=== PATIENT | female | born 1975 | race Hispanic/Latino ===

== ENCOUNTER 2020-10-08 17:17 | Emergency (ER) | payer SELFPAY ==
[2020-10-08 18:55] LABS: #Basophils 0.1 thou/uL (0.0-0.2); #Eosinphils 0.3 thou/uL (0.0-0.7); #Lymphocytes 3.8 thou/uL (1.20-3.40); #Monocytes 0.6 thou/uL (0.11-0.59); #Neutrophils 4.9 thou/uL (1.40-6.50); %Eosinophils 2.7 % (0.0-10.0); %Lymphocytes 38.9 % (21.0-51.0); %Monocytes 6.6 % (0.0-10.0); %Neutrophils 50.8 % (42.0-75.0); Hemoglobin 16.1 g/dL (12.0-16.0); Mean Corpuscular HGB CONC 34.1 g/dL (32.0-36.0); Mean Corpuscular Hemoglobin 31.8 pg (27.0-31.0); Mean Corpuscular Volume 93.2 fL (78.0-98.0); Mean Platelet Volume 6.7 fL (7.4-10.4); Platelet Count 227 thou/uL (130-400); RBC Distribution Width 11.9 % (11.5-14.5); Red Blood Cell (RBC) Count 5.07 mill/uL (4.20-5.40); White Blood Cell (WBC) Count 9.7 thou/uL (4.8-10.8)
[2020-10-08 19:18] LABS: ALT (SGPT) 11 U/L (8-55); AST (SGOT) 16 U/L (5-34); Albumin 4.6 g/dL (3.5-5.0); Alkaline Phosphatase 92 U/L (40-110); Anion Gap 16 mmol/L (10-20); BUN (Urea Nitrogen) 9 mg/dL (7.0-18.7); Bilirubin, Total 0.7 mg/dL (0.2-1.2); Calc. Creatinine Clearance 0 mL/min (70-130); Calcium 9.9 mg/dL (7.8-10.44); Carbon Dioxide 26 mmol/L (22-29); Chloride 102 mmol/L (98-107); Estimated GFR-MDRD 81; Globulin 3.4 g/dL (2.4-3.5); Glucose 81 mg/dL (70-105); Lipase 13 U/L (8-78); Magnesium 1.9 mg/dL (1.6-2.6); Potassium 3.4 mmol/L (3.5-5.1); Sodium 141 mmol/L (136-145)
[2020-10-08 21:15] LABS: Bacteria/HPF 4+ HPF (None Seen); Bilirubin Negative (Negative); Blood, Urine 2+ (Negative); Clarity Turbid (Clear); Glucose, Urine (Dipstick) Normal (Negative); Ketone, Urine Trace mg/dL (Negative); Leukocyte 250 Leu/uL (Negative); Nitrite 2+ (Negative); Pregnancy Test - Urine (BHCG) Negative (Negative); Pregu Control Background? CLEAR/WHITE (CLR/WHITE); Pregu Control Bar Appear? YES (CONTROL BAR); Protein, Urine (Dipstick) 30 mg/dL (Neg-Trace); RBC/HPF Greater than 50 HPF (0-3); Renal Epithelial 0-3 HPF (None Seen); Specific Gravity 1.018 (1.002-1.036); Specific Gravity, Urine 1.018 (1.002-1.036); Urobilinogen Normal mg/dL (Less than 2); WBC/HPF Greater than 50 HPF (0-3)
[2020-10-08 21:20] LABS: Amphetamine Not Detected (NotDetected); Barbiturates Screen Not Detected (NotDetected); Benzodiazepine Screen Not Detected (NotDetected); Cocaine Metabolite Screen Not Detected (NotDetected); Medtox Control Line Valid? VALID (VALID); Medtox Reader # READER 1; Methadone Not Detected (NotDetected); Methamphetamine Not Detected (NotDetected); Opiate Screen Not Detected (NotDetected); Oxycodone Screen Not Detected (NotDetected); Phencyclidine (PCP) Not Detected (NotDetected); THC/Cannabinoid Screen Not Detected (NotDetected); Tricyclic Screen Not Detected (NotDetected)
[2020-10-08] MEDS ORDERED: Lidocaine 1% PF 5 ML VIAL ONE (22:14)
[2020-10-08] MEDS ORDERED: cefTRIAXone\\ROCEPHIN 1 GM VIAL ONE (22:14)
== END 2020-10-08 22:15 | disposition home or self-care (01) ==
LOC: ERS 17:17
DX: N39.0 Urinary tract infection, site not specified (principal); K62.5 Hemorrhage of anus and rectum
CPT/HCPCS: 36415; 80053; 80306; 81003; 81015; 81025; 83690; 83735; 85025; 86850; 86900; 86901; 87077; 87086; 87186; 94760; 96372; J0696

== ENCOUNTER 2020-10-14 18:58 | Observation (INO) | payer SELFPAY ==
[~2020-10-14 18:58] MED LIST: Iopamidol-370 76% 500 ML 1 ML ONE
[2020-10-14 19:28] LABS: Bilirubin Negative (Negative); Blood, Urine Large (Negative); Glucose, Urine (Dipstick) Negative (Negative); Ketone, Urine Negative (Negative); Leukocyte Trace (Negative); Nitrite Negative (Negative); Protein, Urine (Dipstick) 30 mg/dL (Neg-Trace); Specific Gravity, Urine 1.025 (1.005-1.030); Urobilinogen 0.2 mg/dL (Less than 2); pH, Urine 6.5 (5.0-9.0)
[2020-10-14 19:35] LABS: Clarity Clear (Clear)
[2020-10-14 19:36] LABS: Pregnancy Test - Urine (BHCG) Negative (Negative); Pregu Control Background? CLEAR/WHITE (CLR/WHITE); Pregu Control Bar Appear? YES (CONTROL BAR); Specific Gravity 1.025 (1.002-1.036)
[2020-10-14 19:38] LABS: Bacteria/HPF Rare-Few HPF (None Seen); Squamous Epithelial 0-3 HPF (0-3)
[2020-10-14] MEDS ORDERED: Ketorolac Tromethamine 30 MG/ML VIAL ONE (20:40)
[2020-10-14 20:54] LABS: #Basophils 0.1 thou/uL (0.0-0.2); #Eosinphils 0.1 thou/uL (0.0-0.7); #Lymphocytes 1.8 thou/uL (1.20-3.40); #Monocytes 0.7 thou/uL (0.11-0.59); #Neutrophils 9.3 thou/uL (1.40-6.50); %Basophils 0.8 % (0.0-1.0); %Eosinophils 0.8 % (0.0-10.0); %Monocytes 6.1 % (0.0-10.0); %Neutrophils 77.3 % (42.0-75.0); Hemoglobin 15.6 g/dL (12.0-16.0); Mean Corpuscular HGB CONC 34.2 g/dL (32.0-36.0); Mean Corpuscular Hemoglobin 32.5 pg (27.0-31.0); Mean Corpuscular Volume 95.1 fL (78.0-98.0); Mean Platelet Volume 6.7 fL (7.4-10.4); Platelet Count 217 thou/uL (130-400); Red Blood Cell (RBC) Count 4.78 mill/uL (4.20-5.40); White Blood Cell (WBC) Count 12.1 thou/uL (4.8-10.8)
[2020-10-14 21:14] LABS: ALT (SGPT) 12 U/L (8-55); AST (SGOT) 14 U/L (5-34); Albumin 4.1 g/dL (3.5-5.0); Alkaline Phosphatase 77 U/L (40-110); Anion Gap 14 mmol/L (10-20); BUN (Urea Nitrogen) 12 mg/dL (7.0-18.7); Bilirubin, Total 0.3 mg/dL (0.2-1.2); Calc. Creatinine Clearance 0 mL/min (70-130); Calcium 9.9 mg/dL (7.8-10.44); Carbon Dioxide 27 mmol/L (22-29); Chloride 104 mmol/L (98-107); Globulin 3.2 g/dL (2.4-3.5); Glucose 104 mg/dL (70-105); Lipase 16 U/L (8-78); Potassium 4.3 mmol/L (3.5-5.1); Protein, Total 7.3 g/dL (6.0-8.3); Sodium 141 mmol/L (136-145)
--- NOTE | 2020-10-14 21:31 | CT ---
EXAM: CT ABDOMEN AND PELVIS HISTORY: Left flank pain. Vomiting. Abdominal pain. COMPARISON: None. Procedure: Multiple contiguous axial images were obtained and a CT of the abdomen and pelvis with IV contrast. C oronal reformats were performed. FINDINGS: Lower Chest: Scarring and atelectasis in the lung base Vessels: Normal caliber aorta. No periaortic fat stranding Heart: Normal heart size. No significant pericardial fluid Abdomen: Portal vein:Patent Gallbladder: Surgically absent Liver: within normal limits. Pancreas: within normal limits. Spleen: within normal limits. Adrenals: within normal limits. Kidneys: Bilateral nonobstructing intrarenal calculi. There is symmetric enhancement kidneys. Hypoden sity in the mid right renal cortex measures 1.4 cm, compatible with a slightly complex cyst. No evidence of right-sided obstructive uropathy. Mild to moderate dilatation of the left intrarenal lissette ecting system and left renal pelvis secondary to a 0.5 cm calculus in the left ureteropelvic junction. Additional calculi are not appreciated in the left ureter. Peritoneum: No ascites or free air, no fluid collection. Bowel: Limited evaluation due to the lack of oral contrast administration. No evidence of bowel obstr uction. Ileocecal junction is unremarkable. Normal caliber appendix. Scattered fecal material in a nondistended, nondilated colon. Mesentery and Retroperitoneum: No enlarged mesenteric or retroperitoneal lymph nodes. Abdominal Wall: within normal limits. Pelvis: Reproductive Organs: Reproductive organs are unremarkable. Pelvis: No mass, lymphadenopathy, free air or free fluid. Bladder: within normal limits. Bones: No lytic or blastic lesions in the osseous structures. IMPRESSION: Mild to moderate left-sided obstructive uropathy secondary to a nodular calculus in the left ureterop elvic junction.
[2020-10-14] MEDS ORDERED: cefTRIAXone\\ROCEPHIN 1 GM VIAL ONE (22:51)
--- NOTE | 2020-10-15 00:24 | HP ---
CHIEF COMPLAINT: Left-sided abdominal pain. HISTORY OF PRESENT ILLNESS: Ms. Degroot is a 45-year-old female, who presented to the emergency room on 10/08/2020 with left-sided abdominal pain and rectal bleeding. Both these symptoms, she says she has had it off and on for several years. She does have a prior history of stones and states she had a procedure in the past for stones many years ago. She was discharged from the emergency room on 10/08/2020 with a prescription for Cipro for presumed urinary tract infection. She never took this medication as she could not afford it. She returned to the emergency room on 10/14/2020, with persistent left-sided abdominal pain. She denies any fevers, chills, or dysuria. As mentioned above, she did not take her antibiotics. Her urine culture from 10/08/2020 did grow E coli. PAST MEDICAL HISTORY: No chronic medical problems. PAST SURGICAL HISTORY: Procedure for stones many years ago. ALLERGIES: NO KNOWN DRUG ALLERGIES. SOCIAL HISTORY: She is homeless. Denies excessive alcohol use or drugs. REVIEW OF SYSTEMS: RESPIRATORY: Denies any shortness of breath. CARDIOVASCULAR: Denies chest pain or palpitations. GASTROINTESTINAL: Some rectal bleeding intermittently for years. Denies chronic constipation or diarrhea. GENITOURINARY: Denies dysuria. NEUROLOGIC: Denies any dizziness or stroke-like symptoms. PHYSICAL EXAMINATION: GENERAL: She is awake and alert. She is in no distress at this time. VITAL SIGNS: Temperature 98.4, blood pressure 138/82, pulse 82, and respiratory rate 16. HEENT: Normocephalic and atraumatic. NECK: Supple without masses. CHEST: Clear to auscultation. CARDIOVASCULAR: Regular rate and rhythm. ABDOMEN: Soft, nontender. No palpable masses. No peritoneal signs. EXTREMITIES: No edema. LABORATORY DATA: Urine culture on 10/08, positive for E coli sensitive to Rocephin, Levaquin, Cipro. Creatinine normal. White blood cell count 12.6. CT scan demonstrates a 5 mm left upper ureter stone. IMPRESSION: Ms. Degroot is a 45-year-old female with left ureter stone causing flank pain. She also has a positive urine culture, but has no signs or symptoms of urinary tract infection. She has had a positive culture for one week, but has not developed any fever, chills, or dysuria. Because of her social status, I do not feel it is safe to let her be discharged home as followup is not likely and she could potentially become septic over time without treatment. Outpatient compliance with medications is also not likely. I have recommended admission for IV antibiotics. She will need an endoscopic treatment for the stone with stent placement, ureteroscopy, and laser lithotripsy. PLAN: 1. IV antibiotics. 2. Cystoscopy, left ureteroscopy, laser lithotripsy, stone extraction, stent placement. Job ID: [id number]
[2020-10-15] MEDS ORDERED: Morphine 4 MG/ML VIAL SLOW IVP PRN ×3 (01:26→17:21)
[2020-10-15] MEDS ORDERED: Ketorolac Tromethamine 30 MG/ML VIAL IVP PRN (01:30)
[2020-10-15] MEDS ORDERED: Lactated Ringer's 1,000 ML IV SCH (01:30)
[2020-10-15 01:45] VITALS: BMI 20.2
[2020-10-15 05:08] LABS: SARS-CoV-2 N Gene Positive; SARS-CoV-2 S Gene Positive; SARS-CoV-2 by NAA DETECTED (NotDetected); SARS-CoV-2 orf1ab Positive
[2020-10-15 05:09] LABS: SARS-CoV-2 MS2 Positive
[2020-10-15] MEDS ORDERED: FLU VACC QS2020-21(6MOS UP)/PF 60 MCG/0.5 ML SYRINGE IM ONE (09:00)
[2020-10-15] MEDS ORDERED: Succinylcholine 200 MG/10 ml SYRINGE FS ONE ×2 (10:25→15:46)
[2020-10-15] MEDS ORDERED: PROPOFOL 200 MG/20 ML VIAL ONE ×2 (10:25→15:46)
[2020-10-15] MEDS ORDERED: Lidocaine 1% PF 5 ML VIAL ONE ×2 (10:25→15:46)
[2020-10-15] MEDS ORDERED: ePHEDrine 50 MG/ML VIAL ONE ×2 (10:25→15:46)
[2020-10-15] MEDS ORDERED: Ondansetron ODT 4 MG TAB PO PRN (16:42)
[2020-10-15] MEDS: Lactated Ringer's 1,000 ML IV SCH (17:29)
[2020-10-15] MEDS ORDERED: Iothalamate Meglumine 60% 50 ML VIAL FS ONE (19:03)
[2020-10-15] MEDS ORDERED: Midazolam HCl 2 mg/2 ml Vial ONE (19:31)
[2020-10-15] MEDS ORDERED: Fentanyl 100 MCG/2 ML VIAL ONE ×2 (19:31→21:05)
[2020-10-15] MEDS ORDERED: cefTRIAXone\\ROCEPHIN 1 GM VIAL ONE (19:56)
[2020-10-15] MEDS ORDERED: Famotidine 20 MG TAB PO SCH (21:00)
[2020-10-15] MEDS ORDERED: Ondansetron PF 4 MG/2 ML Vial ONE (21:26)
[2020-10-16] MEDS: Lactated Ringer's 1,000 ML IV SCH (00:01)
[2020-10-16 00:03] VITALS: BP 143/67; TEMP 97.3
--- NOTE | 2020-10-16 03:15 | OP ---
DATE OF PROCEDURE: 10/15/2020 PREOPERATIVE DIAGNOSIS: Left ureteral stone. POSTOPERATIVE DIAGNOSIS: Left renal stone. PROCEDURE: Cystoscopy, left ureteroscopy, stone extraction, stent placement. ANESTHESIA: General. INDICATIONS: Ms. Degroot is a 45-year-old female with a positive urine culture and a left upper ureteral stone with hydronephrosis. She was admitted to the hospital and given IV antibiotics. She was not febrile. She is homeless. She is being brought to the operating room for definitive stone therapy. DESCRIPTION OF PROCEDURE: The patient given general anesthesia and IV antibiotics. She is sterilely prepped and draped in a lithotomy position. A guidewire was passed in the left ureter and rigid ureteroscopy was performed up to the left kidney. There were no ureteral stones seen. It is presumed that the upper left ureteral stone was manipulated into the left renal pelvis. A flexible ureteroscope scope was passed in the left renal pelvis. In the left renal pelvis, two stones were seen. Each stone was grasped with the Paul basket and removed. After this was completed, repeat ureteroscopy of the left renal pelvis demonstrated no residual stones. A guidewire was passed through the ureteroscope and then a 6 x 24 double-J stent was passed over the guidewire and coiled in the left renal pelvis and the bladder as determined fluoroscopically and cystoscopically. A string was left in place. The bladder was drained. The string was secured to the left medial thigh. The patient tolerated procedure well, was transported to the operative room and recovery room in stable condition. COMPLICATION: None. ESTIMATED BLOOD LOSS: Minimal. PLAN: Stent removal by the patient in 3 days. Probable discharge home tomorrow. Job ID: [id number] [facility]
--- NOTE | 2020-10-16 08:51 | RAD ---
RETROGRADE PYELOGRAM: Three fluoroscopic images are presented from the OR during retrograde procedure. INDICATION: Retrograde pyelogram with stent placement. FINDINGS/IMPRESSION: Three images do not visualize the pelvis. The initial image shows a catheter overlying the region of the left upper collecting structures. The final image shows a double pigtail catheter which is seen overlying the region of the left renal pelvis. POS: AGW
--- NOTE | 2020-10-17 11:17 | DIS ---
DATE OF ADMISSION: 10/14/2020 DATE OF DISCHARGE: 10/16/2020 HOSPITAL COURSE: The patient was admitted to the hospital on 10/14/2020, with flank pain, left ureteral stone, and a recent positive urine culture. She was given IV antibiotics. She was taken to the operating room on 10/16/2020 and ureteroscopy stone extraction was performed and a ureteral stent was placed. This morning on 10/16/2020, she left the hospital AMA. She knows she has a stent in. She was instructed on when the stent should be removed. She also knows the importance of taking the antibiotic therapy. Despite recommendations for additional antibiotics, the patient refused to stay for further treatment. DISCHARGE MEDICATIONS: Cipro provided during prior discharge. Job ID: [id number]
== END 2020-10-16 06:25 | disposition left against medical advice (07) ==
LOC: ERS 18:58 → SURG A 22:34
PROVIDERS: ADMIT Urology; ATTEND Urology
PROC: 0T778DZ Dilation of Left Ureter with Intraluminal Device, Via Natural or Artificial Opening Endoscopic (ICD-10-PCS; principal; 2020-10-16)
PROC: 0TC48ZZ Extirpation of Matter from Left Kidney Pelvis, Via Natural or Artificial Opening Endoscopic (ICD-10-PCS; 2020-10-16)
DX: N13.0 Hydronephrosis with ureteropelvic junction obstruction (principal); Z59.0 Homelessness
CPT/HCPCS: 36415; 74177; 74420; 80053; 81003; 81015; 81025; 83690; 85025; 87086; 87635; 96365; 96375; 96376; G0378; J0696; J1885; J2250; J2270; J2405; J2704; J3010; J3490; Q9967; U0003

== ENCOUNTER 2020-10-16 18:17 | Emergency (ER) | payer SELFPAY ==
[2020-10-16] MEDS ORDERED: diphenhydrAMINE 25 MG CAP ONE (19:38)
[2020-10-16] MEDS ORDERED: Ketorolac Tromethamine 30 MG/ML VIAL ONE (19:38)
[2020-10-16] MEDS ORDERED: Phenazopyridine HCl 100 MG TAB PO SCH (19:45)
== END 2020-10-16 20:06 | disposition home or self-care (01) ==
LOC: ERS 18:17
DX: U07.1 COVID-19 (principal); G89.18 Other acute postprocedural pain; L29.9 Pruritus, unspecified
CPT/HCPCS: 96372; 99283; J1885; Q0163